=== PATIENT | female | born 1985 | race Two or more races ===

== ENCOUNTER 2017-12-26 19:52 | Emergency (ER) | payer OTHER ==
--- NOTE | 2017-12-26 19:54 | PDOC ---
Rapid Medical Evaluation Time Seen by Provider: 12/26/17 19:53 Medical Evaluation: 12/26/17 19:53 Healthy 32-year-old female with left-sided pelvic pain today. Reports loose BMs x 4 today. No dysuria. Nausea but no vomiting. No fever. LMP 8/4. V/s unremarkable. Alert, oriented, no distress. Abdomen soft, tender over bladder and LLQ. -Labs including CBC, CMP, UA/culture, urine preg -To Main ED for further evaluation
[2017-12-26 20:14] VITALS: BP 144/88; PULSE 86; TEMP 98.7; BMI 26.6
[2017-12-26 20:42] LABS: BASO % 0.2 % (0-2.0); EOS % 1.4 % (0-4.5); HEMATOCRIT 39.9 % (32.4-45.2); HEMOGLOBIN 13.6 GM/dL (10.7-15.3); LYMPH % 23.4 % (8-40); MCH 31.1 pg (25.7-33.7); MCHC 34.2 g/dl (32.0-36.0); MEAN CELL VOLUME 90.9 fl (80-96); MEAN PLT VOLUME 8.8 fl (7.5-11.1); MONO % 6.5 % (3.8-10.2); NEUT % 68.5 % (42.8-82.8); PLATELET COUNT 231 K/MM3 (134-434); RBC 4.38 M/mm3 (3.60-5.2); RDW 13.7 % (11.6-15.6); WHITE BLOOD COUNT 9.8 K/mm3 (4.0-10.0)
[2017-12-26 21:05] LABS: ALBUMIN 3.6 g/dl (3.4-5.0); ANION GAP 9 MMOL/L (8-16); BLOOD UREA NITROGEN 12 mg/dL (7-18); CALCIUM 8.8 mg/dL (8.5-10.1); CHLORIDE 106 mmol/L (98-107); CO2 27 mmol/L (21-32); CREATININE 0.6 mg/dL (0.55-1.02); GLUCOSE,RANDOM 107 mg/dL (74-106); POTASSIUM 3.8 mmol/L (3.5-5.1); SGOT/AST 17 U/L (15-37); SGPT/ALT 26 U/L (12-78); SODIUM 142 mmol/L (136-145)
[2017-12-26 21:07] LABS: ALK PHOS 55 U/L (45-117); BILIRUBIN,TOTAL 0.4 mg/dL (0.2-1.0)
[2017-12-26 21:08] LABS: URINE APPEARANCE CLEAR; URINE BILIRUBIN NEGATIVE (<2.0 mg/dL); URINE COLOR YELLOW; URINE GLUCOSE (UA) NEGATIVE (NEGATIVE); URINE KETONE NEGATIVE (NEGATIVE); URINE LEUK ESTERASE NEGATIVE (NEGATIVE); URINE NITRITE NEGATIVE (NEGATIVE); URINE PROTEIN NEGATIVE (NEGATIVE); URINE UROBILINOGEN NEGATIVE mg/dL (0.2-1.0)
[2017-12-26 21:31] LABS: EPI CELLS FEW /HPF (FEW); URINE BACTERIA RARE /hpf (NONE SEEN); URINE MUCUS RARE
[2017-12-26 21:33] LABS: HCG,QUALITATIVE URINE NEGATIVE
--- NOTE | 2017-12-26 21:43 | PDOC ---
*Physical Exam - Vital Signs Last Vital Signs Temp Pulse Resp BP Pulse Ox 98.7 F 86 20 144/88 100 12/26/17 19:57 12/26/17 19:57 12/26/17 19:57 12/26/17 19:57 12/26/17 19:57 ED Treatment Course - LABORATORY CBC & Chemistry Diagram: 12/26/17 20:39 12/26/17 20:39 - ADDITIONAL ORDERS Additional order review: Laboratory Results 12/26/17 12/26/17 20:39 20:39 Sodium 142 Potassium 3.8 Chloride 106 Carbon Dioxide 27 Anion Gap 9 BUN 12 Creatinine 0.6 Creat Clearance w eGFR > 60 Random Glucose 107 H Calcium 8.8 Total Bilirubin 0.4 AST 17 ALT 26 Alkaline Phosphatase 55 Total Protein 7.0 Albumin 3.6 Urine Color Yellow Urine Appearance Clear Urine pH 5.0 Ur Specific [place] 1.017 Urine Protein Negative Urine Glucose (UA) Negative Urine Ketones Negative Urine Blood 1+ H Urine Nitrite Negative Urine Bilirubin Negative Urine Urobilinogen Negative Ur Leukocyte Esterase Negative Urine WBC (Auto) <1 Urine RBC (Auto) 3 Ur Epithelial Cells Few Urine Bacteria Rare Urine Mucus Rare Urine HCG, Qual Negative 12/26/17 20:39 RBC 4.38 MCV 90.9 MCHC 34.2 RDW 13.7 MPV 8.8 Neutrophils % 68.5 Lymphocytes % 23.4 Monocytes % 6.5 Eosinophils % 1.4 Basophils % 0.2 Medical Decision Making - Medical Decision Making 12/26/17 21:42 agree with care from VITALY Fraser *DC/Admit/Observation/Transfer Diagnosis at time of Disposition: Travelers' diarrhea - Discharge Dispostion Disposition: HOME Condition at time of disposition: Stable - Prescriptions Prescriptions: Ciprofloxacin [Cipro -] 500 mg PO Q12H #10 tablet - Referrals - Patient Instructions Additional Instructions: Keep well-hydrated. Laboratory testing was normal today. Take Cipro 500 mg twice a day until all the medications have been completed. Make an appointment with her primary doctor if symptoms continue. Return to emergency department for worsening pain, inability to hold down fluids , dizziness, fevers or any other concerns. - Post Discharge Activity
--- NOTE | 2017-12-26 22:26 | PDOC ---
History of Present Illness - General Chief Complaint: Pain, Acute Stated Complaint: PAIN, ACUTE Time Seen by Provider: 12/26/17 19:53 History Source: Patient Exam Limitations: No Limitations - History of Present Illness Travel History: Yes ([place]) Initial Comments: 12/26/17 22:21 HISTORY OF PRESENT ILLNESS: Is a 32-year-old woman without significant medical history presents emergency Department with left-sided abdominal pain starting at approximately 1:00 this afternoon. Patient states since that time she has had 3 loose bowel movements which she describes as a light yellow in color. She reports feeling nauseous but has not vomited. Patient denies any dysuria, urinary frequency, vaginal bleeding, vaginal discharge or blood in the stool. No sick contacts. [place] PAST MEDICAL HISTORY: Denies past medical history SURGICAL HISTORY: Denies ALLERGIES: No known drug allergies REVIEW OF SYSTEMS General/Constitutional: Denies fever or chills. Denies weakness, weight change. HEENT: Denies change in vision. Denies ear pain or discharge. Denies sore throat. Cardiovascular: Denies chest pain or shortness of breath. Respiratory: Denies cough, wheezing, or hemoptysis. Gastrointestinal: See HPI Genitourinary: Denies dysuria, frequency, or change in urination. Musculoskeletal: Denies joint or muscle swelling or pain. Denies neck or back pain. Skin and breasts: Denies rash or easy bruising. Neurologic: Denies headache, vertigo, loss of consciousness, or loss of sensation. Psychiatric: Denies depression or anxiety. Endocrine: Denies increased thirst. Denies abnormal weight change. Hematologic/Lymphatic: Denies anemia, easy bleeding, or history of blood clots. Allergic/Immunologic: Denies hives or skin allergy. Denies latex allergy. PHYSICAL EXAM General Appearance: Well-appearing, appropriately dressed. No apparent distress , no intoxication. HEENT: EOMI, PERRLA, normal ENT inspection, normal voice, TMs normal, pharynx normal. No conjunctival pallor. No photophobia, scleral icterus. Neck: Supple. Trachea midline. No tenderness, rigidity, carotid bruit, stridor , lymphadenopathy, or thyromegaly. Respiratory/Chest: Lungs CTAB. No shortness of breath, chest tenderness, respiratory distress, accessory muscle use. No crackles, rales, rhonchi, stridor , wheezing, dullness Cardiovascular: RRR. S1, S2. No JVD, murmur, bradycardia, tachycardia. Vascular Pulses: Dorsalis-Pedis (R): 2+, Dorsalis-Pedis (L): 2+ Gastrointestinal/Abdominal: Normal bowel sounds. Abdomen soft, non-distended. No tenderness or rebound tenderness. No organomegaly, pulsatile mass, guarding, hernia, hepatomegaly, splenomegaly. Lymphatic: No adenopathy, tenderness. Musculoskeletal/Extremities: Normal inspection. FROM of all extremities, normal capillary refill. Pelvis Stable. No CVA tenderness. No tenderness to extremities, pedal edema, swelling, erythema or deformity. Integumentary: Appropriate color, dry, warm. 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 Fully oriented, alert. Appropriate mood/affect. Motor strength 5/5. No appreciable EOM palsy, facial droop or sensory deficit. Past History - Past Medical History Allergies/Adverse Reactions: Allergies Allergy/AdvReac Type Severity Reaction Status Date / Time No Known Allergies Allergy Verified 12/26/17 20:31 Home Medications: Ambulatory Orders Ciprofloxacin [Cipro -] 500 mg PO Q12H #10 tablet 12/26/17 Cardiac Disorders: No CVA: No COPD: No - Suicide/Smoking/Psychosocial Hx Smoking History: Never smoked Information on smoking cessation initiated: No Hx Alcohol Use: Yes (socially) Drug/Substance Use Hx: No *Physical Exam - Vital Signs Last Vital Signs Temp Pulse Resp BP Pulse Ox 98.7 F 86 20 144/88 100 12/26/17 19:57 12/26/17 19:57 12/26/17 19:57 12/26/17 19:57 12/26/17 19:57 ED Treatment Course - LABORATORY CBC & Chemistry Diagram: 12/26/17 20:39 12/26/17 20:39 - ADDITIONAL ORDERS Additional order review: Laboratory Results 12/26/17 12/26/17 20:39 20:39 Sodium 142 Potassium 3.8 Chloride 106 Carbon Dioxide 27 Anion Gap 9 BUN 12 Creatinine 0.6 Creat Clearance w eGFR > 60 Random Glucose 107 H Calcium 8.8 Total Bilirubin 0.4 AST 17 ALT 26 Alkaline Phosphatase 55 Total Protein 7.0 Albumin 3.6 Urine Color Yellow Urine Appearance Clear Urine pH 5.0 Ur Specific [place] 1.017 Urine Protein Negative Urine Glucose (UA) Negative Urine Ketones Negative Urine Blood 1+ H Urine Nitrite Negative Urine Bilirubin Negative Urine Urobilinogen Negative Ur Leukocyte Esterase Negative Urine WBC (Auto) <1 Urine RBC (Auto) 3 Ur Epithelial Cells Few Urine Bacteria Rare Urine Mucus Rare Urine HCG, Qual Negative 12/26/17 20:39 RBC 4.38 MCV 90.9 MCHC 34.2 RDW 13.7 MPV 8.8 Neutrophils % 68.5 Lymphocytes % 23.4 Monocytes % 6.5 Eosinophils % 1.4 Basophils % 0.2 Medical Decision Making - Medical Decision Making 12/26/17 22:26 A/P: 32-year-old woman without significant medical history with left-sided abdominal pain and no diarrhea today after returning from the [place] one week ago. Abdomen soft nontender nondistended Normoactive bowel sounds No palpable masses noted Given normal exam and laboratory results, this is more than likely a traveler's diarrhea. I will treat the patient with Cipro 500 mg twice a day for the next 5 days. *DC/Admit/Observation/Transfer Diagnosis at time of Disposition: Travelers' diarrhea - Discharge Dispostion Disposition: HOME Condition at time of disposition: Stable Decision to Admit order: No - Prescriptions Prescriptions: Ciprofloxacin [Cipro -] 500 mg PO Q12H #10 tablet - Referrals - Patient Instructions Additional Instructions: Keep well-hydrated. Laboratory testing was normal today. Take Cipro 500 mg twice a day until all the medications have been completed. Make an appointment with her primary doctor if symptoms continue. Return to emergency department for worsening pain, inability to hold down fluids , dizziness, fevers or any other concerns. - Post Discharge Activity
== END 2017-12-26 22:49 | disposition home or self-care (01) ==
LOC: JER 19:52
DX: A09 Infectious gastroenteritis and colitis, unspecified (principal)
CPT/HCPCS: 36415; 80053; 81003; 81015; 84703; 85025; 87086; 99281-25

== ENCOUNTER 2024-09-04 06:10 | Inpatient (IN) | payer OTHER ==
[2024-08-30 14:50] VITALS: BMI 33.5
[2024-09-04] MEDS ORDERED: LIDOCAINE HCL 2% 100 MG/5 ML DISP.SYRIN ONE (09:07)
[2024-09-04] MEDS ORDERED: ROCURONIUM BROMIDE 50 MG/5 ML SYRINGE ONE (09:08)
[2024-09-04] MEDS ORDERED: PROPOFOL 20 ML ONE (09:08)
[2024-09-04] MEDS: ceFAZolin 2 GRAM PREMIX BAG IVPB ONE (09:55)
[2024-09-04] MEDS ORDERED: SUGAMMADEX SODIUM 200 MG/2 ML VIAL ONE ×2 (10:09→10:40)
[2024-09-04] MEDS ORDERED: ONDANSETRON 4 MG/2 ML VIAL IVPUSH PRN ×3 (10:15→11:33)
[2024-09-04] MEDS ORDERED: NALOXONE HCL 0.4 MG/ML VIAL IVPUSH PRN (10:16)
[2024-09-04] MEDS ORDERED: KETOROLAC TROMETHAMINE 30 MG/1 ML VIAL ONE (10:40)
[2024-09-04] MEDS ORDERED: oxyCODONE HCL 5 MG TABLET PO PRN (11:33)
[2024-09-04] MEDS ORDERED: ACETAMINOPHEN INJECTION 100 ML ONE (11:44)
[2024-09-04] MEDS: ACETAMINOPHEN 1000 MG/100 ML BAG IVPB ONE (11:45)
[2024-09-04] MEDS ORDERED: ELECTROLYTE-148 SOLN 1,000 ML IV SCH (11:45)
[2024-09-04] MEDS: ACETAMINOPHEN 325 MG TABLET (FP) PO SCH (12:10)
[2024-09-04] MEDS: morphine SULFATE/PF 1 MG/2 ML (2cc Syringe - QUVA) ONE (12:19)
[2024-09-04] MEDS: FENTANYL CITRATE/PF 50 MCG/ML VIAL ONE (12:19)
[2024-09-04] MEDS: morphine SULFATE/PF 1 MG/2 ML (2cc Syringe - QUVA) IT ONE (12:19)
[2024-09-04] MEDS: MIDAZOLAM HCL 2 MG/2 ML SINGLE DOSE VIAL ONE (12:20)
[2024-09-04] MEDS: HYDROmorphone HCl 2 MG/ML VIAL IVPUSH PRN (12:37)
[2024-09-04] MEDS: HYDROmorphone HCl 2 MG/ML VIAL IVPUSH ONE ×2 (13:30→13:45)
[2024-09-04] MEDS: LACTATED RINGERS SOLUTION 1,000 ML IV SCH (13:51)
[2024-09-04] MEDS: IBUPROFEN 800 MG/8 ML IJ IVPB PRN (15:22)
[2024-09-04] MEDS: oxyCODONE HCL 5 MG TABLET PO PRN (16:42)
[2024-09-04] MEDS ORDERED: CEFAZOLIN 2 GM in DEXTROSE 5%-WATER - 100 ML IVPB SCH (18:00)
[2024-09-04] MEDS: CEFAZOLIN 2 GM/D5W 2 GM/50 ML ML IVPB SCH (18:20)
[2024-09-05] MEDS: SIMETHICONE 80 MG TAB.CHEW (FP) PO PRN (01:06)
[2024-09-05 06:40] LABS: ABSOLUTE IMMATURE GRANULOCYTES 0.06 x10^3/uL (0.0-0.031); BASOPHILS # 0.02 x10^3/uL (0.01-0.08); EOSINOPHIL % 0.1 % (0.7-5.8); EOSINOPHILS # 0.01 x10^3/uL (0.04-0.36); HEMATOCRIT 38.4 % (34.1-44.9); HEMOGLOBIN 12.8 g/dL (11.2-15.7); MCHC 33.3 g/dl (32.2-35.5); MEAN CELL VOLUME 92.1 fl (79.4-94.8); MEAN PLT VOLUME 10.7 fl (9.4-12.3); MONOCYTE # 1.24 x10^3/uL (0.24-0.86); MONOCYTE % 9.7 % (4.7-12.5); PLATELET COUNT 218 x10^3/uL (182-369); RDW 12.3 % (12.2-17.1)
[2024-09-05 07:23] LABS: POTASSIUM 4.4 mmol/L (3.5-5.1)
[2024-09-05 07:26] LABS: ALBUMIN 2.9 g/dl (3.4-5.0); BLOOD UREA NITROGEN 10.7 mg/dL (7-18)
[2024-09-05 07:29] LABS: CREATININE 0.8 mg/dL (0.55-1.3)
[2024-09-05 07:31] LABS: BILIRUBIN,TOTAL 0.3 mg/dL (0.2-1); TOT PROT 6.1 g/dl (6.4-8.2)
[2024-09-05] MEDS: DOCUSATE SODIUM 100 MG CAPSULE (FP) PO SCH (09:07)
[2024-09-05] MEDS: ENOXAPARIN NA (PORCINE) 40 MG/0.4 ML DISP.SYRIN SQ SCH (09:27)
[2024-09-05] MEDS: IBUPROFEN 600 MG TABLET (FP) PO PRN (14:56)
[2024-09-05] MEDS: oxyCODONE HCL 5 MG TABLET PO PRN (19:33)
[2024-09-05] MEDS: oxyCODONE HCL 10 MG SUSTAINED ACTING TABLET PO SCH (21:31)
[2024-09-06 05:59] VITALS: PULSE 83
[2024-09-06 09:53] VITALS: BP 131/75; RESP 17; TEMP 98.1
== END 2024-09-06 10:40 | disposition home or self-care (01) | DRG 519 ==
LOC: J2C 06:10 → J3W 14:16
PROVIDERS: ADMIT Obstetrics & Gynecology; ATTEND Obstetrics & Gynecology
PROC: 0UT70ZZ Resection of Bilateral Fallopian Tubes, Open Approach (ICD-10-PCS; 2024-09-04)
PROC: 0UT90ZL Resection of Uterus, Supracervical, Open Approach (ICD-10-PCS; principal; 2024-09-04 09:00)
DX: D25.9 Leiomyoma of uterus, unspecified (principal); R10.2 Pelvic and perineal pain; N92.6 Irregular menstruation, unspecified
CPT/HCPCS: 36415; 80053; 81025; 85025; 86850; 86900; 86901; 88305-TC; 88307-TC; 94760